=== PATIENT | male | born 1995 | race Hispanic/Latino ===

== ENCOUNTER 2016-07-22 06:50 | Emergency (ER) | payer OTHER ==
[~2016-07-22] VITALS: Ht 144.8 cm; Wt 59.0 kg
[2016-07-22] MEDS ORDERED: ACETAMINOPHEN 325 MG TAB PO ONE (07:30)
[2016-07-22] MEDS ORDERED: ONDANSETRON 4 MG ORAL DISINTEGRATING TAB (S0181) PO ONE (07:30)
[2016-07-22] MEDS ORDERED: ADACEL/BOOSTRIX VACCINE (DIPHTH/PERTUSS/ACELL/TETANUS)0.5ML SYR (90715) IM ONE (07:30)
[2016-07-22] MEDS ORDERED: LIDOCAINE W/EPINEPHRINE 1% 20ML VIAL As Ordered ONE (08:02)
--- NOTE | 2016-07-22 08:30 | REP ---
CT Head without contrast HISTORY: Trauma COMPARISON: None There is no intraparenchymal hemorrhage, acute infarct, mass or midline shift. The ventricular system is normal in appearance. There is no extra cerebral collection. There is no fracture. The visualized sinuses are clear. Soft tissue swelling is present overlying the right frontal and parietal bones. IMPRESSION: There is no intracranial lesion. Signed by Leonard Penn MD 07/22/2016 08:21 A
[2016-07-22] MEDS ORDERED: LIDOCAINE W/EPINEPHRINE 1% 20ML VIAL SC ONE (08:45)
--- NOTE | 2016-07-22 08:45 | REP ---
CT cervical spine without contrast HISTORY: Trauma COMPARISON: None There is no acute fracture or subluxation. There is no disc bulge or herniation. The spinal canal and neural foramina are patent. The intervertebral discs and vertebral bodies are normal in height. IMPRESSION: There is no acute fracture or subluxation. Signed by Leonard Penn MD 07/22/2016 08:36 A
[2016-07-22] MEDS ORDERED: TYLE325T5 PO (11:01)
[2016-07-22] MEDS ORDERED: COLA100C3 PO (11:01)
[2016-07-22 11:10] VITALS: BP 106/61
--- NOTE | 2016-07-22 14:54 | REP ---
MAXILLOFACIAL CT WITHOUT CONTRAST: HISTORY: Trauma. Mucosal thickening is present in the right frontal and ethmoid sinuses. The remaining sinuses are clear. The osteomeatal units are patent. The middle and inferior nasal turbinates are partially paradoxical. The nasal septum is midline. The cribriform plate, medial chavez of the orbits, and optic canals are intact. The carotid canals form a segment of the posterolateral chavez of the sphenoid sinus. There are fractures of the roof of the right orbit and right cribriform plate. There is minimal enlargement of the right superior rectus muscle, consistent with edema and/or hematoma. The remaining rectus muscles, optic nerve, and globe are normal in appearance. Contents of the left orbit are normal. Soft tissue swelling is present overlying the right frontal bone. IMPRESSION: 1. Sinus mucosal thickening, as described above. 2. There are fractures of the roof of the right orbit and right cribriform plate. Signed by Leonard Penn MD 07/22/2016 03:18 P
== END 2016-07-22 11:16 | disposition home or self-care (01) ==
LOC: EDBD 07:51 → M ED 07:51
DX: S02.19XA Other fracture of base of skull, initial encounter for closed fracture (principal); S01.81XA Laceration without foreign body of other part of head, initial encounter; W01.10XA Fall on same level from slipping, tripping and stumbling with subsequent striking against unspecified object, initial encounter; Y92.71 Barn as the place of occurrence of the external cause; Y93.K9 Activity, other involving animal care; Y99.8 Other external cause status; F17.210 Nicotine dependence, cigarettes, uncomplicated